=== PATIENT | male | born 1940 | race African-American/Black ===

== ENCOUNTER 2016-09-29 15:26 | Emergency (ER) | payer OTHER ==
[~2016-09-29] VITALS: Ht 180.3 cm; Wt 72.9 kg
[~2016-09-29 15:26] MED LIST: ANTI-DIARRHEA2 MG PO; ASCORBIC ACID500 M3 PO; AUGMENTIN500 MG PO; AUGMENTIN875 MG PO; B COMPLETE1 EACH PO; BACTRIM,SEPT1 TABLET PO; COLACE100 MG PO; FLOMAX0.4 MG PO; LISINOPRIL10 MG PO; METHOCARBAMOL750 MG PO; MORPHINE SULFAT30 M5 PO; MULTIVITAMIN1 EAC2 PO; NAPROSYN500 MG PO; NORCO 5/3251 TABLET PO; SAW PALMETTO160 MG PO; SIMVASTATIN10 MG PO; ULTRAM50 MG PO; VIAGRA100 MG PO; VITAMIN B-12; VITAMIN B-122000 MCG PO; VITAMIN B-150 MG PO; VITAMIN B-650 MG PO; VITAMIN D-32000 UNI1 PO; VITAMIN D5000 INTUN PO; ZESTORETIC 20-1 EAC1 NG; ZOCOR20 MG PO; Zestril,Prinivil PO
[2016-09-29 15:49] LABS: HEMATOCRIT 33.6 % (38.0-50.0); MCH 29.4 PG (29.0-34.0); MCHC 33.9 G/DL (30.0-36.0); MCV 86.6 FL (86-99); MEAN PLAT.VOLUME 9.3 uM^3 (9.0-12.4); PLATELET COUNT 205 K/uL (156-360); RBC DIS.WIDTH-CV 14.2 % (11.8-14.6); RBC DIS.WIDTH-SD 44.8 % (39-53); RED BLOOD COUNT 3.88 M/uL (4.00-5.50); WHITE BLOOD COUNT 6.8 K/uL (4.1-10.2)
[2016-09-29 16:00] LABS: CHLORIDE 100 mEq/L (99-109); POTASSIUM 4.3 mEq/L (3.7-5.4); SODIUM 135 mEq/L (136-147)
[2016-09-29 16:02] LABS: GLUCOSE 94 mg/dL (70-99)
[2016-09-29 16:03] LABS: ANION GAP 12 MEQ/L (2-14)
[2016-09-29 16:06] LABS: GFR ESTIMATE (CALCULATED) > 59 mL/min/; UREA NITROGEN (BUN) 16 mg/dL (9-23)
[2016-09-29 16:13] LABS: TROP-I INTERPRETATION NEGATIVE; TROPONIN-I 0.02 ng/mL (0.0-0.30)
[2016-09-29 17:33] LABS: INFLUENZA A VIRAL ANTIGEN NEGATIVE; INFLUENZA B VIRAL ANTIGEN POSITIVE
[2016-09-29 19:14] VITALS: BP 145/107
== END 2016-09-29 19:27 | disposition home or self-care (01) ==
LOC: EME 15:26
PROVIDERS: Emergency Medicine
DX: J10.1 Influenza due to other identified influenza virus with other respiratory manifestations (principal); J44.9 Chronic obstructive pulmonary disease, unspecified; I10 Essential (primary) hypertension; K21.9 Gastro-esophageal reflux disease without esophagitis; Z85.46 Personal history of malignant neoplasm of prostate; Z87.891 Personal history of nicotine dependence
CPT/HCPCS: 71020; 80048; 84484; 85027; 86850; 86900; 86901; 87502; 93005; 99281; 99284; J7030

== ENCOUNTER 2016-12-17 13:09 | Emergency (ER) | payer OTHER ==
[~2016-12-17] VITALS: Ht 177.8 cm; Wt 77.3 kg
[2016-12-17] MEDS ORDERED: DOXYCYCLINE HY100 MG PO (13:53)
[2016-12-17] MEDS ORDERED: PREDNISONE50 MG PO (13:53)
[2016-12-17 14:15] VITALS: BP 149/84
== END 2016-12-17 14:15 | disposition home or self-care (01) ==
LOC: EME 13:09
DX: J01.90 Acute sinusitis, unspecified (principal); I10 Essential (primary) hypertension; K21.9 Gastro-esophageal reflux disease without esophagitis; J44.9 Chronic obstructive pulmonary disease, unspecified; Z87.891 Personal history of nicotine dependence; Z85.46 Personal history of malignant neoplasm of prostate; Z92.3 Personal history of irradiation
CPT/HCPCS: 99281; 99283

== ENCOUNTER 2016-12-25 10:59 | Inpatient (IN) | payer OTHER ==
[~2016-12-25] VITALS: Ht 180.3 cm; Wt 75.0 kg
[~2016-12-25 10:59] MED LIST changes: +DOXYCYCLINE HY100 MG PO; +PREDNISONE50 MG PO
[2016-12-25 13:22] LABS: HEMATOCRIT 29.2 % (38.0-50.0); MCH 30.7 PG (29.0-34.0); MCHC 32.9 G/DL (30.0-36.0); MCV 93.3 FL (86-99); MEAN PLAT.VOLUME 8.6 uM^3 (9.0-12.4); PLATELET COUNT 238 K/uL (156-360); RBC DIS.WIDTH-CV 15.9 % (11.8-14.6); RBC DIS.WIDTH-SD 54.4 % (39-53); RED BLOOD COUNT 3.13 M/uL (4.00-5.50); WHITE BLOOD COUNT 4.6 K/uL (4.1-10.2)
[2016-12-25 13:29] LABS: CHLORIDE 105 mEq/L (99-109); POTASSIUM 4.3 mEq/L (3.7-5.4); SODIUM 139 mEq/L (136-147)
[2016-12-25 13:31] LABS: GLUCOSE 89 mg/dL (70-99)
[2016-12-25 13:32] LABS: ANION GAP 7 MEQ/L (2-14)
[2016-12-25 13:35] LABS: GFR ESTIMATE (CALCULATED) > 59 mL/min/
[2016-12-25 13:36] LABS: UREA NITROGEN (BUN) 13 mg/dL (9-23)
[2016-12-25 13:40] LABS: TROP-I INTERPRETATION NEGATIVE; TROPONIN-I < 0.01 ng/mL (0.0-0.30)
[2016-12-25] MEDS ORDERED: MS CONTIN,ORAMO30 MG PO (15:58)
[2016-12-25] MEDS ORDERED: LATANOPROST2.5 ML BOTH EYES (15:59)
[2016-12-25] MEDS ORDERED: COMBIGAN O20 DROP/5 LEFT EYE (16:00)
[2016-12-25] MEDS ORDERED: BACLOFEN10 MG PO (16:00)
[2016-12-25 17:38] VITALS: BP 177/86
[2016-12-25 20:16] VITALS: BP 147/86
[2016-12-25 23:35] VITALS: BP 144/77
[2016-12-26 03:42] VITALS: BP 143/76
[2016-12-26 06:35] LABS: HEMATOCRIT 28.8 % (38.0-50.0); MCH 30.7 PG (29.0-34.0); MCV 93.2 FL (86-99); MEAN PLAT.VOLUME 8.5 uM^3 (9.0-12.4); PLATELET COUNT 232 K/uL (156-360); RBC DIS.WIDTH-CV 15.7 % (11.8-14.6); RBC DIS.WIDTH-SD 54.4 % (39-53); RED BLOOD COUNT 3.09 M/uL (4.00-5.50); WHITE BLOOD COUNT 3.7 K/uL (4.1-10.2)
[2016-12-26 07:11] LABS: ANION GAP 10 MEQ/L (2-14); CHLORIDE 104 MEQ/L (99-109); GFR ESTIMATE (CALCULATED) > 59 mL/min/; POTASSIUM 4.4 MEQ/L (3.7-5.4); SAMPLE HEMOLYSIS CHECK 0; SAMPLE ICTERIC CHECK 0; SAMPLE LIPEMIA CHECK 0; SODIUM 138 MEQ/L (136-147); UREA NITROGEN (BUN) 17 mg/dL (9-23)
[2016-12-26 07:12] LABS: GLUCOSE 142 mg/dL (70-99)
[2016-12-26 07:52] VITALS: BP 165/95
[2016-12-26 08:25] LABS: INTER. NORMALIZED RATIO 1.1; PROTHROMBIN TIME 11.4 (9.2-11.2); PTT 30.1 (25-32)
[2016-12-26 11:02] VITALS: BP 181/86
[2016-12-26 11:30] VITALS: BP 171/79
[2016-12-26 19:55] VITALS: BP 143/76
[2016-12-26 23:44] VITALS: BP 150/74
[2016-12-27 03:31] VITALS: BP 131/76
[2016-12-27 06:55] LABS: HEMATOCRIT 27.9 % (38.0-50.0); MCH 30.7 PG (29.0-34.0); MCHC 33.3 G/DL (30.0-36.0); MCV 92.1 FL (86-99); MEAN PLAT.VOLUME 9.2 uM^3 (9.0-12.4); PLATELET COUNT 247 K/uL (156-360); RBC DIS.WIDTH-CV 15.8 % (11.8-14.6); RBC DIS.WIDTH-SD 52.7 % (39-53); RED BLOOD COUNT 3.03 M/uL (4.00-5.50)
[2016-12-27 07:17] LABS: IRON 100 MCG/DL (35-150)
[2016-12-27 07:42] VITALS: BP 180/92
[2016-12-27 10:03] LABS: FERRITIN 237 NG/ML (22-322)
[2016-12-27 11:07] LABS: TROP-I INTERPRETATION NEGATIVE; TROPONIN-I < 0.01 ng/mL (0.0-0.30)
[2016-12-27 15:51] VITALS: BP 156/87
[2016-12-27 21:00] VITALS: BP 144/86
[2016-12-28 00:13] VITALS: BP 151/81
[2016-12-28 07:28] LABS: MCH 31.6 PG (29.0-34.0); MCHC 34.1 G/DL (30.0-36.0); MCV 92.8 FL (86-99); MEAN PLAT.VOLUME 9.3 uM^3 (9.0-12.4); PLATELET COUNT 230 K/uL (156-360); RED BLOOD COUNT 2.91 M/uL (4.00-5.50); WHITE BLOOD COUNT 11.2 K/uL (4.1-10.2)
[2016-12-28 07:50] LABS: ANION GAP 9 MEQ/L (2-14); CHLORIDE 106 MEQ/L (99-109); GFR ESTIMATE (CALCULATED) > 59 mL/min/; GLUCOSE 109 mg/dL (70-99); POTASSIUM 3.7 MEQ/L (3.7-5.4); SAMPLE HEMOLYSIS CHECK 0; SAMPLE ICTERIC CHECK 0; SAMPLE LIPEMIA CHECK 0; SODIUM 140 MEQ/L (136-147); UREA NITROGEN (BUN) 19 mg/dL (9-23)
[2016-12-28 08:16] VITALS: BP 162/111
[2016-12-28 13:29] VITALS: BP 163/90
[2016-12-28 15:38] VITALS: BP 156/95
[2016-12-28 23:50] VITALS: BP 171/98
[2016-12-29 05:51] VITALS: BP 160/91
[2016-12-29 07:40] VITALS: BP 163/96
[2016-12-29 10:50] LABS: TROP-I INTERPRETATION NEGATIVE; TROPONIN-I < 0.01 ng/mL (0.0-0.30)
[2016-12-29 23:45] VITALS: BP 161/94
[2016-12-30 05:31] LABS: HEMATOCRIT 26.7 % (38.0-50.0); MCHC 34.1 G/DL (30.0-36.0); MCV 90.8 FL (86-99); MEAN PLAT.VOLUME 9.2 uM^3 (9.0-12.4); PLATELET COUNT 220 K/uL (156-360); RBC DIS.WIDTH-CV 15.3 % (11.8-14.6); RBC DIS.WIDTH-SD 51.3 % (39-53); RED BLOOD COUNT 2.94 M/uL (4.00-5.50); WHITE BLOOD COUNT 9.2 K/uL (4.1-10.2)
[2016-12-30 06:00] LABS: ANION GAP 9 MEQ/L (2-14); CHLORIDE 104 MEQ/L (99-109); GFR ESTIMATE (CALCULATED) > 59 mL/min/; GLUCOSE 116 mg/dL (70-99); POTASSIUM 3.6 MEQ/L (3.7-5.4); SAMPLE HEMOLYSIS CHECK 0; SAMPLE ICTERIC CHECK 0; SAMPLE LIPEMIA CHECK 0; SODIUM 138 MEQ/L (136-147); UREA NITROGEN (BUN) 19 mg/dL (9-23)
[2016-12-30 07:53] VITALS: BP 153/92
[2016-12-30 15:51] VITALS: BP 133/67
[2016-12-30 23:57] VITALS: BP 139/68
[2016-12-31 07:56] VITALS: BP 162/89
[2016-12-31 15:48] VITALS: BP 137/75
[2017-01-01] VITALS: BP 133/68
[2017-01-01 07:46] VITALS: BP 151/78
[2017-01-01] MEDS ORDERED: AMLODIPINE BESY10 MG PO (13:53)
[2017-01-01] MEDS ORDERED: SPIRIVA RESPIMAT4 GM IH (13:53)
[2017-01-01] MEDS ORDERED: AMOX TR-K CLV1 EAC4 PO (13:53)
[2017-01-01] MEDS ORDERED: ADVAIR HFA120 INHALA IH (13:54)
[2017-01-01] MEDS ORDERED: DECADRON2 MG PO (14:05)
[2017-01-01 16:14] VITALS: BP 147/69
== END 2017-01-01 18:06 | disposition home health service (06) | DRG 180 ==
LOC: EME 10:59 → EDOF 16:17 → 5SOUTH 16:17
PROVIDERS: Emergency Medicine; Internal Medicine; Physician Assistant Medical; Radiology Diagnostic Radiology
PROC: 0FB13ZX Excision of Right Lobe Liver, Percutaneous Approach, Diagnostic (ICD-10-PCS; principal; 2016-12-26)
PROC: DBY27ZZ Contact Radiation of Lung (ICD-10-PCS; principal; 2016-12-26)
DX: C34.01 Malignant neoplasm of right main bronchus (principal); C78.02 Secondary malignant neoplasm of left lung; C78.7 Secondary malignant neoplasm of liver and intrahepatic bile duct; J44.0 Chronic obstructive pulmonary disease with (acute) lower respiratory infection; J13 Pneumonia due to Streptococcus pneumoniae; I87.1 Compression of vein; R91.8 Other nonspecific abnormal finding of lung field; J44.1 Chronic obstructive pulmonary disease with (acute) exacerbation; R59.0 Localized enlarged lymph nodes; R60.0 Localized edema; I10 Essential (primary) hypertension; K21.9 Gastro-esophageal reflux disease without esophagitis; R33.9 Retention of urine, unspecified; F43.10 Post-traumatic stress disorder, unspecified; D63.8 Anemia in other chronic diseases classified elsewhere; Z85.46 Personal history of malignant neoplasm of prostate; Z87.891 Personal history of nicotine dependence; Z92.3 Personal history of irradiation
CPT/HCPCS: 36600; 70553; 71010; 71020; 71260; 77012; 77295; 77300; 77331; 77334; 77412; 77417; 80048; 82607; 82728; 82746; 83540; 83605; 84466; 84484; 85027; 85610; 85730; 87040; 87070; 87205; 88307; 88341 TC; 88342 TC; 93005; 94640; 94640 76; 94760; 99202; 99281; 99285; C9113; J1200; J1650; J1885; J2270; J2543; J2930; J3010; J7030; J7050; J8540; S0028

== ENCOUNTER 2017-01-24 11:23 | Inpatient (IN) | payer OTHER ==
[~2017-01-24] VITALS: Ht 179.1 cm; Wt 71.8 kg
[~2017-01-24 11:23] MED LIST changes: +ADVAIR HFA120 INHALA IH; +AMLODIPINE BESY10 MG PO; +AMOX TR-K CLV1 EAC4 PO; +BACLOFEN10 MG PO; +COMBIGAN O20 DROP/5 LEFT EYE; +DECADRON2 MG PO; +LATANOPROST2.5 ML BOTH EYES; +MS CONTIN,ORAMO30 MG PO; +SPIRIVA RESPIMAT4 GM IH
[2017-01-24 12:23] LABS: HEMATOCRIT 25.8 % (38.0-50.0); MCH 30.1 PG (29.0-34.0); MCHC 33.3 G/DL (30.0-36.0); MCV 90.2 FL (86-99); RBC DIS.WIDTH-CV 15.2 % (11.8-14.6); RBC DIS.WIDTH-SD 49.9 % (39-53); RED BLOOD COUNT 2.86 M/uL (4.00-5.50); WHITE BLOOD COUNT 2.9 K/uL (4.1-10.2)
[2017-01-24 12:30] LABS: CHLORIDE 110 mEq/L (99-109); POTASSIUM 3.9 mEq/L (3.7-5.4); SODIUM 145 mEq/L (136-147)
[2017-01-24 12:32] LABS: GLUCOSE 117 mg/dL (70-99)
[2017-01-24 12:33] LABS: ANION GAP 13 MEQ/L (2-14)
[2017-01-24 12:34] LABS: TOTAL BILIRUBIN 0.3 mg/dL (0.0-1.0)
[2017-01-24 12:35] LABS: ALKALINE PHOSPHATASE 108 IU/L (3-129)
[2017-01-24 12:36] LABS: GFR ESTIMATE (CALCULATED) > 59 mL/min/
[2017-01-24 12:37] LABS: UREA NITROGEN (BUN) 44 mg/dL (9-23)
[2017-01-24 13:02] LABS: EOSINOPHIL (%) 0.3 % (0-5); IMMATURE GRANULOCYTE (%) 1.4 % (0.0-0.7); INSTRUMENT ABS NEUTROPHIL CT 2.4 K/uL; LYMPHOCYTE COUNT 0.2 K/uL (1.0-2.8); MEAN PLAT.VOLUME 9.7 uM^3 (9.0-12.4); MONOCYTE (%) 5.6 % (3-12); MONOCYTE COUNT 0.2 K/uL (0-0.8); NEUTROPHIL (%) 84.7 % (45-76); NEUTROPHIL COUNT 2.4 K/uL (1.8-6.4); PLAT.SUFFICIENCY DECREASED
[2017-01-24 13:12] LABS: PLATELET COUNT 102 K/uL (156-360)
[2017-01-24] MEDS ORDERED: AMLODIPINE BESY10 MG PO (13:46)
[2017-01-24] MEDS ORDERED: VITAMIN D2000 UNIT PO (13:47)
[2017-01-24] MEDS ORDERED: CYANOCOBALAM1000 MCG PO (13:47)
[2017-01-24] MEDS ORDERED: SPIRIVA RESPIMAT4 GM IH (13:50)
[2017-01-24 17:29] VITALS: BP 124/76
[2017-01-24 19:35] LABS: HEMATOCRIT 24.5 % (38.0-50.0); MCH 31.4 PG (29.0-34.0); MCHC 33.9 G/DL (30.0-36.0); MCV 92.8 FL (86-99); MEAN PLAT.VOLUME 9.5 uM^3 (9.0-12.4); PLATELET COUNT 97 K/uL (156-360); RBC DIS.WIDTH-CV 15.6 % (11.8-14.6); RBC DIS.WIDTH-SD 52.7 % (39-53); RED BLOOD COUNT 2.64 M/uL (4.00-5.50)
[2017-01-24 19:42] VITALS: BP 120/77
[2017-01-24 19:43] LABS: INTER. NORMALIZED RATIO 1.2; PROTHROMBIN TIME 11.9 (9.2-11.2)
[2017-01-24 19:59] LABS: ALKALINE PHOSPHATASE 89 IU/L (3-129); ANION GAP 10 MEQ/L (2-14); CHLORIDE 112 MEQ/L (99-109); GFR ESTIMATE (CALCULATED) > 59 mL/min/; GLUCOSE 119 mg/dL (70-99); POTASSIUM 4.1 MEQ/L (3.7-5.4); SAMPLE HEMOLYSIS CHECK 0; SAMPLE ICTERIC CHECK 0; SAMPLE LIPEMIA CHECK 0; SODIUM 144 MEQ/L (136-147); TOTAL BILIRUBIN 0.3 MG/DL (0.0-1.0); UREA NITROGEN (BUN) 38 mg/dL (9-23)
[2017-01-24 20:10] LABS: ABS NEUTROPHIL COUNT 2.7; BAND NEUTROPHILS 2.6 % (0-8.0); EOSINOPHIL ABS CT 0; EOSINOPHILS 0.9 % (0-5.0); INSTRUMENT ABS NEUTROPHIL CT 2.6 K/uL; LYMPHOCYTES 4.4 % (15.0-45.0); SEG.NEUTROPHILS 88.6 % (46.0-76.0)
[2017-01-24 20:25] LABS: ERTH.SED.RATE 104 MM/HR (0-20)
[2017-01-24 22:39] LABS: ADD MIUA? YES; BILIRUBIN NEGATIVE; BLOOD SMALL; COLOR YELLOW ((YELLOW)); GLUCOSE (STRIP) NEGATIVE; KETONES NEGATIVE; LEUKOCYTES NEGATIVE; NITRITE NEGATIVE; PROTEIN (STRIP) NEGATIVE; UROBILINOGEN 0.2 MG/DL (0.2-1.0)
[2017-01-24 22:42] LABS: SPECIFIC GRAVITY 1.059 (1.000-1.030)
[2017-01-25 00:07] VITALS: BP 117/79
[2017-01-25 01:35] LABS: BACTERIA NONE SEEN /HPF; EPITHELIAL CELLS RARE /HPF; HYALINE CASTS 0-5 /LPF; MUCUS NONE SEEN /LPF; RED BLOOD CELLS 0-5 /HPF (0-5); UCUL ADDED? NO
[2017-01-25 03:54] VITALS: BP 119/74
[2017-01-25 07:20] VITALS: BP 125/77
[2017-01-25 07:39] LABS: INTERNAL CONTROL VALID? YES
[2017-01-25 09:27] LABS: HEMATOCRIT 24.1 % (38.0-50.0); MCH 30.7 PG (29.0-34.0); MCHC 32.8 G/DL (30.0-36.0); MCV 93.8 FL (86-99); MEAN PLAT.VOLUME 9.9 uM^3 (9.0-12.4); NRBC (%) 0.5 /100 WBC (0-0); PLATELET COUNT 102 K/uL (156-360); RBC DIS.WIDTH-CV 15.3 % (11.8-14.6); RBC DIS.WIDTH-SD 51.8 % (39-53); RED BLOOD COUNT 2.57 M/uL (4.00-5.50); WHITE BLOOD COUNT 3.7 K/uL (4.1-10.2)
[2017-01-25 09:54] LABS: ANION GAP 13 MEQ/L (2-14); CHLORIDE 111 MEQ/L (99-109); GFR ESTIMATE (CALCULATED) > 59 mL/min/; GLUCOSE 96 mg/dL (70-99); POTASSIUM 4.2 MEQ/L (3.7-5.4); SAMPLE HEMOLYSIS CHECK 0; SAMPLE ICTERIC CHECK 0; SAMPLE LIPEMIA CHECK 0; SODIUM 146 MEQ/L (136-147); UREA NITROGEN (BUN) 35 mg/dL (9-23)
[2017-01-25 10:55] LABS: FERRITIN 1632 NG/ML (22-322)
[2017-01-25 11:55] VITALS: BP 133/81
[2017-01-25 18:51] VITALS: BP 136/78
[2017-01-25 22:46] VITALS: BP 140/77
[2017-01-26 02:14] VITALS: BP 143/82
[2017-01-26 08:30] VITALS: BP 123/75
[2017-01-26 09:46] LABS: HEMATOCRIT 25.6 % (38.0-50.0); MCH 31.1 PG (29.0-34.0); MCHC 32.8 G/DL (30.0-36.0); MCV 94.8 FL (86-99); NRBC (%) 0.8 /100 WBC (0-0); PLATELET COUNT 112 K/uL (156-360); RBC DIS.WIDTH-CV 15.2 % (11.8-14.6); RBC DIS.WIDTH-SD 52.2 % (39-53); WHITE BLOOD COUNT 4.7 K/uL (4.1-10.2)
[2017-01-26 10:30] LABS: ANION GAP 10 MEQ/L (2-14); CHLORIDE 112 MEQ/L (99-109); GFR ESTIMATE (CALCULATED) > 59 mL/min/; GLUCOSE 139 mg/dL (70-99); POTASSIUM 4.6 MEQ/L (3.7-5.4); SAMPLE HEMOLYSIS CHECK 0; SAMPLE ICTERIC CHECK 0; SAMPLE LIPEMIA CHECK 0; SODIUM 143 MEQ/L (136-147); UREA NITROGEN (BUN) 36 mg/dL (9-23)
[2017-01-26 10:55] VITALS: BP 117/71
[2017-01-26 11:04] LABS: METH RESISTANT S AUREUS PCR NEGATIVE (NEGATIVE); PROBE CHECK PASS; SPECIMEN PROCESSING CONTROL PASS
[2017-01-26 11:28] LABS: BASE EXCESS -2.1 mEq/L (-3 to +3); BICARBONATE 22.2 mEq/L (22-26); CARBOXY HGB 1.3 % (0-5); COMMENTS - BLOOD GASES A+C+; DEVICE NC; O2 FLOW 2 L/MIN; PCO2 35 mm Hg (35-45); PO2 77 mm Hg (80-100); SITE LR; pH 7.41 (7.35-7.45)
[2017-01-26 15:55] VITALS: BP 141/89
[2017-01-26 21:49] VITALS: BP 143/87
[2017-01-27] VITALS (7 sets, daily range): BP systolic 119–153; BP diastolic 74–99
[2017-01-27 08:17] LABS: MCHC 32.5 G/DL (30.0-36.0); MCV 92.3 FL (86-99); NRBC (%) 1.3 /100 WBC (0-0); PLATELET COUNT 125 K/uL (156-360); RBC DIS.WIDTH-CV 14.9 % (11.8-14.6); RBC DIS.WIDTH-SD 50.2 % (39-53)
[2017-01-27 08:47] LABS: ALKALINE PHOSPHATASE 74 IU/L (3-129); ANION GAP 8 MEQ/L (2-14); CHLORIDE 108 MEQ/L (99-109); GFR ESTIMATE (CALCULATED) > 59 mL/min/; GLUCOSE 85 mg/dL (70-99); POTASSIUM 3.9 MEQ/L (3.7-5.4); SAMPLE HEMOLYSIS CHECK 0; SAMPLE ICTERIC CHECK 0; SAMPLE LIPEMIA CHECK 0; SODIUM 141 MEQ/L (136-147); TOTAL BILIRUBIN 0.3 MG/DL (0.0-1.0); UREA NITROGEN (BUN) 26 mg/dL (9-23)
[2017-01-28 03:37] VITALS: BP 136/77
[2017-01-28 07:26] VITALS: BP 142/43
[2017-01-28 12:06] VITALS: BP 121/77
[2017-01-28 14:14] LABS: TREPONEMA ANTIBODY NEGATIVE (NEGATIVE)
[2017-01-28 15:47] VITALS: BP 102/54
[2017-01-28 19:25] VITALS: BP 138/69
[2017-01-28 23:15] VITALS: BP 128/74
[2017-01-29 03:20] VITALS: BP 121/69
[2017-01-29 07:55] VITALS: BP 135/85
[2017-01-29 08:44] LABS: HEMATOCRIT 27.2 % (38.0-50.0); MCH 30.8 PG (29.0-34.0); MCHC 34.6 G/DL (30.0-36.0); MCV 89.2 FL (86-99); NRBC (%) 0.5 /100 WBC (0-0); RBC DIS.WIDTH-CV 14.6 % (11.8-14.6); RBC DIS.WIDTH-SD 47.9 % (39-53); RED BLOOD COUNT 3.05 M/uL (4.00-5.50); WHITE BLOOD COUNT 4.3 K/uL (4.1-10.2)
[2017-01-29 08:45] LABS: PLATELET COUNT 174 K/uL (156-360)
[2017-01-29 08:54] LABS: ANION GAP 9 MEQ/L (2-14); GFR ESTIMATE (CALCULATED) > 59 mL/min/; GLUCOSE 96 mg/dL (70-99); POTASSIUM 3.2 MEQ/L (3.7-5.4); SAMPLE HEMOLYSIS CHECK 0; SAMPLE ICTERIC CHECK 0; SAMPLE LIPEMIA CHECK 0; SODIUM 135 MEQ/L (136-147); UREA NITROGEN (BUN) 15 mg/dL (9-23)
[2017-01-29 09:06] LABS: CHLORIDE 95 MEQ/L (99-109)
[2017-01-29 11:22] VITALS: BP 146/91
[2017-01-29 16:07] VITALS: BP 141/89
[2017-01-29 19:37] VITALS: BP 128/74
[2017-01-29 22:37] VITALS: BP 121/74
[2017-01-30 02:55] VITALS: BP 113/69
[2017-01-30 06:48] LABS: HEMATOCRIT 24.6 % (38.0-50.0); MCH 30.3 PG (29.0-34.0); MCHC 33.7 G/DL (30.0-36.0); MCV 89.8 FL (86-99); MEAN PLAT.VOLUME 9.8 uM^3 (9.0-12.4); PLATELET COUNT 185 K/uL (156-360); RBC DIS.WIDTH-CV 14.5 % (11.8-14.6); RBC DIS.WIDTH-SD 47.2 % (39-53); RED BLOOD COUNT 2.74 M/uL (4.00-5.50); WHITE BLOOD COUNT 4.1 K/uL (4.1-10.2)
[2017-01-30 07:23] LABS: ANION GAP 12 MEQ/L (2-14); CHLORIDE 97 MEQ/L (99-109); GFR ESTIMATE (CALCULATED) > 59 mL/min/; GLUCOSE 83 mg/dL (70-99); POTASSIUM 3.8 MEQ/L (3.7-5.4); SAMPLE HEMOLYSIS CHECK 0; SAMPLE ICTERIC CHECK 0; SAMPLE LIPEMIA CHECK 0; SODIUM 136 MEQ/L (136-147); UREA NITROGEN (BUN) 18 mg/dL (9-23)
[2017-01-30 07:27] VITALS: BP 123/76
[2017-01-30 16:10] VITALS: BP 107/55
[2017-01-30 21:04] VITALS: BP 105/68
[2017-01-30 23:19] VITALS: BP 126/69
[2017-01-31 06:39] LABS: HEMATOCRIT 21.4 % (38.0-50.0); MCH 31.2 PG (29.0-34.0); MCHC 34.6 G/DL (30.0-36.0); MCV 90.3 FL (86-99); PLATELET COUNT 210 K/uL (156-360); RBC DIS.WIDTH-CV 14.6 % (11.8-14.6); RBC DIS.WIDTH-SD 47.8 % (39-53); RED BLOOD COUNT 2.37 M/uL (4.00-5.50)
[2017-01-31 06:53] VITALS: BP 119/72
[2017-01-31 07:02] LABS: ANION GAP 6 MEQ/L (2-14); CHLORIDE 102 MEQ/L (99-109); GFR ESTIMATE (CALCULATED) > 59 mL/min/; GLUCOSE 95 mg/dL (70-99); POTASSIUM 3.6 MEQ/L (3.7-5.4); SAMPLE HEMOLYSIS CHECK 0; SAMPLE ICTERIC CHECK 0; SAMPLE LIPEMIA CHECK 0; SODIUM 138 MEQ/L (136-147); UREA NITROGEN (BUN) 22 mg/dL (9-23)
[2017-01-31] MEDS ORDERED: AMLODIPINE BESYL5 MG PO (10:22)
[2017-01-31] MEDS ORDERED: DUONEB 2.5-0.5 M3 ML AEROSOL (10:22)
[2017-01-31] MEDS ORDERED: LOPRESSOR25 MG PO (10:22)
[2017-01-31] MEDS ORDERED: ZOFRAN4 MG PO (10:23)
[2017-01-31 12:07] LABS: HEMATOCRIT 25.1 % (38.0-50.0); MCV 90.9 FL (86-99)
[2017-01-31 15:15] VITALS: BP 105/59
== END 2017-01-31 16:53 | DRG 871 ==
LOC: EME 11:23 → EDOF 12:46 → 5WEST 16:40 → 5EAST 01-25 16:22
PROVIDERS: Anesthesiology; Emergency Medicine; Hospitalist; Internal Medicine; Physician Assistant Medical
DX: A41.9 Sepsis, unspecified organism (principal); J96.01 Acute respiratory failure with hypoxia; J18.9 Pneumonia, unspecified organism; E86.0 Dehydration; D61.818 Other pancytopenia; C77.9 Secondary and unspecified malignant neoplasm of lymph node, unspecified; J44.0 Chronic obstructive pulmonary disease with (acute) lower respiratory infection; C34.01 Malignant neoplasm of right main bronchus; C78.7 Secondary malignant neoplasm of liver and intrahepatic bile duct; C79.31 Secondary malignant neoplasm of brain; J70.0 Acute pulmonary manifestations due to radiation; R00.0 Tachycardia, unspecified; R11.2 Nausea with vomiting, unspecified; I10 Essential (primary) hypertension; Y84.2 Radiological procedure and radiotherapy as the cause of abnormal reaction of the patient, or of later complication, without mention of misadventure at the time of the procedure; R53.1 Weakness; K21.9 Gastro-esophageal reflux disease without esophagitis; Z92.3 Personal history of irradiation; J44.1 Chronic obstructive pulmonary disease with (acute) exacerbation; D63.0 Anemia in neoplastic disease; G89.29 Other chronic pain; G93.41 Metabolic encephalopathy; Z87.891 Personal history of nicotine dependence; Z85.46 Personal history of malignant neoplasm of prostate; Y95 Nosocomial condition
CPT/HCPCS: 36600; 70553; 71010; 71020; 71275; 80048; 80053; 80202; 81003; 82140; 82728; 82803; 83605; 85014; 85018; 85025; 85025 91; 85027; 85610; 85651; 86780; 87040; 87070; 87205; 87449; 87641; 93005; 94640; 94640 76; 94760; 94799; 97530 GO; 97530 GP; 99202; 99281; 99285; G0463 25; G8978 GP CK; G8979 GP CI; J1650; J2405; J2543; J2920; J3370; J7030; J7050; J7120; J7512; S0028

== ENCOUNTER 2017-02-03 19:12 | Emergency (ER) | payer OTHER ==
[~2017-02-03] VITALS: Ht 175.3 cm; Wt 66.9 kg
[~2017-02-03 19:12] MED LIST changes: +AMLODIPINE BESYL5 MG PO; +CYANOCOBALAM1000 MCG PO; +DUONEB 2.5-0.5 M3 ML AEROSOL; +LOPRESSOR25 MG PO; +VITAMIN D2000 UNIT PO; +ZOFRAN4 MG PO
[2017-02-03 20:20] LABS: EOSINOPHIL (%) 0.7 % (0-5); HEMATOCRIT 25.9 % (38.0-50.0); IMMATURE GRANULOCYTE (%) 2.7 % (0.0-0.7); IMMATURE GRANULOCYTE COUNT 0.2 K/uL; LYMPHOCYTE COUNT 0.7 K/uL (1.0-2.8); MCHC 33.2 G/DL (30.0-36.0); MCV 90.2 FL (86-99); MEAN PLAT.VOLUME 9.2 uM^3 (9.0-12.4); MONOCYTE (%) 10.1 % (3-12); MONOCYTE COUNT 0.6 K/uL (0-0.8); NEUTROPHIL (%) 73.8 % (45-76); NRBC (%) 0.4 /100 WBC (0-0); RBC DIS.WIDTH-CV 14.6 % (11.8-14.6); RBC DIS.WIDTH-SD 48.5 % (39-53); WHITE BLOOD COUNT 5.5 K/uL (4.1-10.2)
[2017-02-03 20:24] LABS: PLATELET COUNT 366 K/uL (156-360); RED BLOOD COUNT 2.87 M/uL (4.00-5.50)
[2017-02-03 20:33] LABS: CHLORIDE 102 mEq/L (99-109); SODIUM 138 mEq/L (136-147)
[2017-02-03 20:35] LABS: GLUCOSE 80 mg/dL (70-99); TROP-I INTERPRETATION NEGATIVE; TROPONIN-I 0.01 ng/mL (0.0-0.30)
[2017-02-03 20:36] LABS: ANION GAP 14 MEQ/L (2-14)
[2017-02-03 20:37] LABS: TOTAL BILIRUBIN 0.4 mg/dL (0.0-1.0)
[2017-02-03 20:38] LABS: ALKALINE PHOSPHATASE 72 IU/L (3-129)
[2017-02-03 20:39] LABS: GFR ESTIMATE (CALCULATED) > 59 mL/min/
[2017-02-03 20:40] LABS: UREA NITROGEN (BUN) 16 mg/dL (9-23)
[2017-02-04 02:30] VITALS: BP 121/79
== END 2017-02-04 02:32 ==
LOC: EME → EDBD 19:12 → EME 19:12
PROVIDERS: Emergency Medicine
DX: R09.02 Hypoxemia (principal); C34.90 Malignant neoplasm of unspecified part of unspecified bronchus or lung; J84.10 Pulmonary fibrosis, unspecified; J44.9 Chronic obstructive pulmonary disease, unspecified; Z87.891 Personal history of nicotine dependence; Z99.81 Dependence on supplemental oxygen
CPT/HCPCS: 71020; 71275; 80053; 84484; 85025; 93005; 94640; 99281; 99285

== ENCOUNTER 2017-02-10 01:38 | Emergency (ER) | payer OTHER ==
[~2017-02-10] VITALS: Ht 172.7 cm; Wt 65.7 kg
[2017-02-10 02:23] LABS: HEMATOCRIT 29.1 % (38.0-50.0); MCH 29.2 PG (29.0-34.0); MCHC 31.6 G/DL (30.0-36.0); MCV 92.4 FL (86-99); MEAN PLAT.VOLUME 9.4 uM^3 (9.0-12.4); NRBC (%) 0.5 /100 WBC (0-0); PLATELET COUNT 414 K/uL (156-360); RBC DIS.WIDTH-CV 15.6 % (11.8-14.6); RBC DIS.WIDTH-SD 51.8 % (39-53); RED BLOOD COUNT 3.15 M/uL (4.00-5.50); WHITE BLOOD COUNT 7.3 K/uL (4.1-10.2)
[2017-02-10 02:34] LABS: CHLORIDE 108 mEq/L (99-109); POTASSIUM 3.5 mEq/L (3.7-5.4)
[2017-02-10 02:36] LABS: GLUCOSE 119 mg/dL (70-99); SODIUM 145 mEq/L (136-147)
[2017-02-10 02:37] LABS: ANION GAP 10 MEQ/L (2-14)
[2017-02-10 02:38] LABS: TOTAL BILIRUBIN 0.4 mg/dL (0.0-1.0)
[2017-02-10 02:40] LABS: ALKALINE PHOSPHATASE 95 IU/L (3-129); GFR ESTIMATE (CALCULATED) > 59 mL/min/
[2017-02-10 02:41] LABS: UREA NITROGEN (BUN) 16 mg/dL (9-23)
[2017-02-10 03:18] LABS: ABS NEUTROPHIL COUNT 4.7; ANISOCYTOSIS 1+; ATYPICAL LYMPHOCYTE 0.9 %; BAND NEUTROPHILS 1.7 % (0-8.0); BASOPHILS 0.9 %; EOSINOPHIL ABS CT 0.1; EOSINOPHILS 0.9 % (0-5.0); INSTRUMENT ABS NEUTROPHIL CT 3.6 K/uL; MACROCYTES 1+; NUCLEATED RBC'S 0.9; PLAT.SUFFICIENCY ADEQUATE
[2017-02-10 03:19] LABS: LYMPHOCYTES 25.4 % (15.0-45.0); SEG.NEUTROPHILS 63.2 % (46.0-76.0)
[2017-02-10 05:35] VITALS: BP 98/66
== END 2017-02-10 05:36 ==
LOC: EME → EDBD 01:38 → EME 01:38
PROVIDERS: Emergency Medicine
DX: R00.0 Tachycardia, unspecified (principal); J44.9 Chronic obstructive pulmonary disease, unspecified; W19.XXXA Unspecified fall, initial encounter; Y92.129 Unspecified place in nursing home as the place of occurrence of the external cause; I10 Essential (primary) hypertension; K21.9 Gastro-esophageal reflux disease without esophagitis; J84.10 Pulmonary fibrosis, unspecified; Z87.891 Personal history of nicotine dependence
CPT/HCPCS: 70450; 71020; 80053; 81003; 83605; 83880; 85025; 87040; 93005; 99281; 99285; J7030

== ENCOUNTER 2017-02-23 12:21 | Inpatient (IN) | payer OTHER ==
[~2017-02-23] VITALS: Ht 177.8 cm; Wt 71.2 kg
[2017-02-23 13:18] LABS: EOSINOPHIL (%) 1.9 % (0-5); EOSINOPHIL COUNT 0.1 K/uL (0-0.3); HEMATOCRIT 23.8 % (38.0-50.0); IMMATURE GRANULOCYTE (%) 1.6 % (0.0-0.7); IMMATURE GRANULOCYTE COUNT 0.1 K/uL; INSTRUMENT ABS NEUTROPHIL CT 2.8 K/uL; LYMPHOCYTE COUNT 2.5 K/uL (1.0-2.8); MCH 28.7 PG (29.0-34.0); MCHC 31.1 G/DL (30.0-36.0); MCV 92.2 FL (86-99); MONOCYTE (%) 14.2 % (3-12); MONOCYTE COUNT 0.9 K/uL (0-0.8); NEUTROPHIL COUNT 2.8 K/uL (1.8-6.4); RBC DIS.WIDTH-CV 16.1 % (11.8-14.6); RED BLOOD COUNT 2.58 M/uL (4.00-5.50); WHITE BLOOD COUNT 6.4 K/uL (4.1-10.2)
[2017-02-23 13:24] LABS: CHLORIDE 112 mEq/L (99-109); INTER. NORMALIZED RATIO 1.3; PROTHROMBIN TIME 13.9 SEC (10.2-12.9); SODIUM 145 mEq/L (136-147)
[2017-02-23 13:26] LABS: GLUCOSE 94 mg/dL (70-99)
[2017-02-23 13:27] LABS: ANION GAP 5 MEQ/L (2-14)
[2017-02-23 13:29] LABS: GFR ESTIMATE (CALCULATED) > 59 mL/min/
[2017-02-23 13:30] LABS: UREA NITROGEN (BUN) 13 mg/dL (9-23)
[2017-02-23 14:19] LABS: MEAN PLAT.VOLUME 9.2 uM^3 (9.0-12.4)
[2017-02-23 14:39] LABS: PLATELET COUNT 235 K/uL (156-360)
[2017-02-23] MEDS ORDERED: EPOGEN,PRO10000 UNIT SC (14:58)
[2017-02-23] MEDS ORDERED: IRON325 M1 PO (14:59)
[2017-02-23] MEDS ORDERED: PEPCID20 MG PO (15:00)
[2017-02-23] MEDS ORDERED: LEVAQUIN750 MG PO (15:00)
[2017-02-23] MEDS ORDERED: MIRTAZAPINE7.5 MG PO (15:01)
[2017-02-23] MEDS ORDERED: SENOKOT,SENN1 TABLET PO (15:01)
[2017-02-23] MEDS ORDERED: METOPROLOL TART25 MG PO (15:03)
[2017-02-23] MEDS ORDERED: DUONEB 2.5-0.5 M3 ML AEROSOL (15:05)
[2017-02-23] MEDS ORDERED: TYLENOL REGULA325 MG PO (15:06)
[2017-02-23 15:50] VITALS: BP 120/89
[2017-02-23 16:02] LABS: TOTAL BILIRUBIN 0.4 mg/dL (0.0-1.0)
[2017-02-23 16:04] LABS: ALKALINE PHOSPHATASE 95 IU/L (3-129)
[2017-02-23 16:10] VITALS: BP 112/81
[2017-02-23 16:11] LABS: DIRECT BILIRUBIN 0.2 mg/dL (0.0-0.3); TROP-I INTERPRETATION NEGATIVE; TROPONIN-I 0.02 ng/mL (0.0-0.30)
[2017-02-23 17:11] VITALS: BP 107/78
[2017-02-23 18:11] VITALS: BP 132/73
[2017-02-24] VITALS (9 sets, daily range): BP systolic 90–155; BP diastolic 55–92
[2017-02-24 09:51] LABS: HEMATOCRIT 30.5 % (38.0-50.0); MCH 29.3 PG (29.0-34.0); MCHC 32.5 G/DL (30.0-36.0); MCV 90.2 FL (86-99); MEAN PLAT.VOLUME 9.3 uM^3 (9.0-12.4); PLATELET COUNT 206 K/uL (156-360); RBC DIS.WIDTH-CV 15.7 % (11.8-14.6); WHITE BLOOD COUNT 8.2 K/uL (4.1-10.2)
[2017-02-24 09:53] LABS: RED BLOOD COUNT 3.38 M/uL (4.00-5.50)
[2017-02-24 09:55] LABS: ANION GAP 10 MEQ/L (2-14); CHLORIDE 113 MEQ/L (99-109); GFR ESTIMATE (CALCULATED) > 59 mL/min/; GLUCOSE 87 mg/dL (70-99); POTASSIUM 4.4 MEQ/L (3.7-5.4); SAMPLE HEMOLYSIS CHECK 0; SAMPLE ICTERIC CHECK 0; SAMPLE LIPEMIA CHECK 0; SODIUM 143 MEQ/L (136-147); UREA NITROGEN (BUN) 12 mg/dL (9-23)
[2017-02-24 10:45] LABS: ADD MIUA? NO; BILIRUBIN NEGATIVE; BLOOD NEGATIVE; COLOR YELLOW ((YELLOW)); GLUCOSE (STRIP) NEGATIVE; KETONES NEGATIVE; LEUKOCYTES NEGATIVE; NITRITE NEGATIVE; PROTEIN (STRIP) NEGATIVE; SPECIFIC GRAVITY 1.017 (1.000-1.030); UCUL ADDED? NO; UROBILINOGEN 0.2 MG/DL (0.2-1.0)
[2017-02-25 06:46] LABS: HEMATOCRIT 30.3 % (38.0-50.0); MCH 29.7 PG (29.0-34.0); MCHC 32.7 G/DL (30.0-36.0); MEAN PLAT.VOLUME 9.4 uM^3 (9.0-12.4); PLATELET COUNT 190 K/uL (156-360); RBC DIS.WIDTH-CV 16.2 % (11.8-14.6); RBC DIS.WIDTH-SD 53.3 % (39-53); RED BLOOD COUNT 3.33 M/uL (4.00-5.50); WHITE BLOOD COUNT 8.2 K/uL (4.1-10.2)
[2017-02-25 07:10] LABS: ANION GAP 9 MEQ/L (2-14); CHLORIDE 114 MEQ/L (99-109); GFR ESTIMATE (CALCULATED) > 59 mL/min/; GLUCOSE 92 mg/dL (70-99); POTASSIUM 4.1 MEQ/L (3.7-5.4); SAMPLE HEMOLYSIS CHECK 0; SAMPLE ICTERIC CHECK 0; SAMPLE LIPEMIA CHECK 0; SODIUM 148 MEQ/L (136-147); UREA NITROGEN (BUN) 12 mg/dL (9-23)
[2017-02-25] MEDS ORDERED: MORPHINE SULFAT15 M1 PO (09:56)
[2017-02-25] MEDS ORDERED: Ativan Oral Concentr PO (09:56)
[2017-02-25] MEDS ORDERED: HALDOL2 MG PO (09:56)
[2017-02-25] MEDS ORDERED: FENTANYL1 EAC5 TD (09:56)
[2017-02-25 14:55] VITALS: BP 00/00
== END 2017-02-25 16:00 | DRG 71 ==
LOC: EME 12:21 → 5EAST 15:31 → EDOF 15:31 → ENRESERV 15:31 → 5EAST 18:07 → ENPENDDIS 02-25 15:30 → 5EAST 02-25 16:00
PROVIDERS: Emergency Medicine; Physician Assistant Medical
PROC: 30233N1 Transfusion of Nonautologous Red Blood Cells into Peripheral Vein, Percutaneous Approach (ICD-10-PCS; principal; 2017-02-23)
DX: G93.40 Encephalopathy, unspecified (principal); R62.7 Adult failure to thrive; E46 Unspecified protein-calorie malnutrition; E86.0 Dehydration; I87.1 Compression of vein; C78.7 Secondary malignant neoplasm of liver and intrahepatic bile duct; C34.91 Malignant neoplasm of unspecified part of right bronchus or lung; I10 Essential (primary) hypertension; D63.0 Anemia in neoplastic disease; J44.9 Chronic obstructive pulmonary disease, unspecified; K21.9 Gastro-esophageal reflux disease without esophagitis; G89.29 Other chronic pain; M54.9 Dorsalgia, unspecified; N40.0 Benign prostatic hyperplasia without lower urinary tract symptoms; Z66 Do not resuscitate; Z51.5 Encounter for palliative care; Z99.81 Dependence on supplemental oxygen; Z85.46 Personal history of malignant neoplasm of prostate; Z87.891 Personal history of nicotine dependence
CPT/HCPCS: 70450; 70553; 71020; 80048; 80076; 81003; 82607; 82746; 83605; 84443; 84484; 85025; 85027; 85610; 86900; 86901; 86920; 87040; 94640; 94760; 94799; 99281; 99285; J0290; J0696; J0881; J1450; J1650; J2270; J3370; J7030; J7050; P9016